=== PATIENT | male | born 1990 | race American Indian/Alaskan Native ===

== ENCOUNTER 2020-05-29 09:21 | Emergency (ER) | payer SELFPAY ==
--- NOTE | 2020-05-29 10:07 | Emergency Department Report ---
ED Abdominal Pain HPI - General Chief Complaint: Abdominal Pain Stated Complaint: VOMITTING/DIAREHA Time Seen by Provider: 05/29/20 09:53 Source: patient Mode of arrival: Ambulatory Limitations: No Limitations - History of Present Illness Initial Comments: 30-year-old -[place] male presents to the emergency room complaining of left lower abdominal cramping with nausea vomiting diarrhea. Patient has no past medical history. Patient states that he ate a sandwich containing mayonnaise that had been sitting his hot car for a few days. Patient has no past medical history. Patient reports that he had taken Imodium which had slowed down the diarrhea but is still having nausea and vomiting. Patient states he feels weak. He denies any hematochezia, hematemesis, chest pain, shortness of breath, penile discharge. or testicular pain. Covid test negative on 05/27/2020. MD Complaint: abdominal pain Onset/Timin -: week(s) Location: LLQ Radiation: none Severity scale (0 -10): 7 Quality: cramping, sharp Consistency: intermittent Improves With: nothing Worsens With: nothing Context: possible food poisoning Associated Symptoms: nausea, vomiting, diarrhea, anorexia. denies: constipation, dysuria, hematemesis, hematochezia, melena, hematuria - Related Data Previous Rx's Medication Instructions Recorded Last Taken Type Dicyclomine [Bentyl] 10 mg PO QID PRN #12 capsule 05/29/20 Unknown Rx Ondansetron [Zofran Odt] 4 mg PO Q8HR PRN #12 tab.rapdis 05/29/20 Unknown Rx Allergies Allergy/AdvReac Type Severity Reaction Status Date / Time No Known Allergies Allergy Unverified 05/29/20 09:25 ED Review of Systems ROS: Stated complaint: VOMITTING/DIAREHA Other details as noted in HPI Comment: All other systems reviewed and negative ED Past Medical Hx - Past Medical History Previous Medical History?: No - Surgical History Past Surgical History?: No - Social History Smoking Status: Current Every Day Smoker Substance Use Type: None - Medications Home Medications: Home Medications Medication Instructions Recorded Confirmed Last Taken Type Dicyclomine [Bentyl] 10 mg PO QID PRN #12 capsule 05/29/20 Unknown Rx Ondansetron [Zofran Odt] 4 mg PO Q8HR PRN #12 tab.rapdis 05/29/20 Unknown Rx ED Physical Exam - General Limitations: No Limitations General appearance: alert, in no apparent distress - Head Head exam: Present: atraumatic, normocephalic - Eye Eye exam: Present: normal appearance - ENT ENT exam: Present: mucous membranes moist - Neck Neck exam: Present: normal inspection, full ROM - Respiratory Respiratory exam: Present: normal lung sounds bilaterally. Absent: respiratory distress, chest wall tenderness, accessory muscle use - Cardiovascular Cardiovascular Exam: Present: regular rate, normal rhythm. Absent: systolic murmur, diastolic murmur, rubs, gallop - GI/Abdominal GI/Abdominal exam: Present: soft, tenderness (Left lower quadrant), normal bowel sounds. Absent: distended - Extremities Exam Extremities exam: Present: normal inspection, full ROM - Back Exam Back exam: Present: normal inspection, full ROM - Neurological Exam Neurological exam: Present: alert, oriented X3 - Psychiatric Psychiatric exam: Present: normal affect, normal mood - Skin Skin exam: Present: warm, dry, intact, normal color. Absent: rash ED Course Vital Signs 05/29/20 09:27 Temperature 98.5 F Pulse Rate 72 Respiratory 18 Rate Blood Pressure 137/80 O2 Sat by Pulse 100 Oximetry ED Medical Decision Making - Lab Data Result diagrams: 05/29/20 10:27 05/29/20 10:25 - Radiology Data Radiology results: report reviewed - Medical Decision Making 30-year-old -[place] male presents to the emergency room complaining of left lower abdominal cramping with nausea vomiting diarrhea. Patient has no past medical history. Patient states that he ate a sandwich containing mayonnaise that had been sitting his hot car for a few days. Patient has no past medical history. Patient reports that he had taken Imodium which had slowed down the diarrhea but is still having nausea and vomiting. Patient states he feels weak. He denies any hematochezia, hematemesis, chest pain, shortness of breath, penile discharge. or testicular pain. Covid test negative on 05/27/2020. CBC, CMP, lipase and CT abdomen pelvis with contrast as patient has left lower quadrant tenderness. The patient is resting comfortably and feels better, is alert and in no distress. The repeat examination is unremarkable and benign; in particular, there is no discomfort at the McBurney's point and there is no pulsating mass. The history, exam and diagnostic testing, and current condition do not suggest an acute appendicitis, bowel obstruction, or acute cholecystitis, bowel perforation, major gastrointestinal bleeding, severe diverticulitis, abdominal aorta, mesenteric ischemia, volvulus, sepsis, or other significant pathology to warrant further testing, continued ED treatment, admission, or surgical evaluation at this point. The vital signs have been stable. The patient does not have uncomfortable pain, irretractable vomiting, or other significant symptoms. The patient's condition is stable and appropriate for discharge from the emergency room. The patient will pursue further outpatient evaluation with the primary care physician or other designated or consulting physician as indicated in the discharge instructions. Critical care attestation.: If time is entered above; I have spent that time in minutes in the direct care of this critically ill patient, excluding procedure time. ED Disposition Clinical Impression: Nausea vomiting and diarrhea Disposition: - TO HOME OR SELFCARE Is pt being admited?: No Does the pt Need Aspirin: No Condition: Stable Instructions: Nausea and Vomiting, Adult, [id number], Diarrhea, Adult, [id number] Additional Instructions: Labs are stable. Vital signs are stable. CT scan shows no acute abnormality. Prescription for Zofran for nausea and vomiting. Bentyl for abdominal cramping. Follow-up with her primary care provider. Prescriptions: Dicyclomine [Bentyl] 10 mg PO QID PRN #12 capsule PRN Reason: Pain, Moderate (4-6) Ondansetron [Zofran Odt] 4 mg PO Q8HR PRN #12 tab.rapdis PRN Reason: Nausea And Vomiting Referrals: PRIMARY CARE, [Primary Care Provider] - 3-5 Days Forms: AMA Form, Work/School Release Form(ED)
[2020-05-29] MEDS ORDERED: ONDANSETRON 4 MG/2 ML INJ IV ONE (10:08)
[2020-05-29] MEDS ORDERED: SODIUM CHLORIDE 0.9% 1000 ML 1,000 ML IV ONE (10:08)
[2020-05-29 10:55] LABS: Basophils # (Auto) 0.1 K/mm3 (0.0-0.1); Eosinophils # (Auto) 0.4 K/mm3 (0.0-0.4); Eosinophils % (Auto) 6.8 % (0.0-4.3); Hematocrit 40.4 % (35.5-45.6); Hemoglobin 14.3 gm/dl (11.8-15.2); Lymphocytes # (Auto) 2.2 K/mm3 (1.2-5.4); Lymphocytes % (Auto) 38.7 % (13.4-35.0); Mean Corpuscular HGB Conc 35 % (32-34); Mean Corpuscular Volume 82 fl (84-94); Monocytes # (Auto) 0.4 K/mm3 (0.0-0.8); Monocytes % (Auto) 6.3 % (0.0-7.3); Platelet Count 310 K/mm3 (140-440); Red Blood Count 4.96 M/mm3 (3.65-5.03); Red Cell Distribution Width 13.7 % (13.2-15.2)
[2020-05-29 10:57] LABS: Alanine Aminotransferase 33 units/L (7-56); Albumin 4.2 g/dL (3.9-5); BUN/Creatinine Ratio 26; Blood Urea Nitrogen 21 mg/dL (9-20); Calcium 9.3 mg/dL (8.4-10.2); Hemolysis Index 6
--- NOTE | 2020-05-29 13:14 | Cat Scan Report ---
CT OF THE ABDOMEN AND PELVIS WITH INTRAVENOUS CONTRAST INDICATION / CLINICAL INFORMATION: Left lower quadrant pain and diarrhea. TECHNIQUE: The patient received 100 cc Omnipaque [address] scans at this location are performed using CT dose reduction for ALARA by means of automated exposure control. COMPARISON: None available. FINDINGS: ABDOMEN: The liver, spleen, gallbladder, bile ducts, pancreas, adrenal glands, kidneys and bowel demo nstrate no significant abnormality. No adenopathy is seen. The lung bases are clear. PELVIS: The distal ureters, urinary bladder, prostate gland and seminal vesicles are normal. A normal appendix is present and there is no evidence of diverticulitis. No abnormal mass or fluid collection is seen. I do not identify a hernia. No osseous abnormality is seen. IMPRESSION: No acute abnormality is identified. Signer Name: Carlos Renteria MD Signed: 05/29/2020 1:04 PM Workstation Name: [id number]
[2020-05-29 13:31] VITALS: BP 128/70
== END 2020-05-29 13:31 | disposition home or self-care (01) ==
LOC: ED 09:21
DX: R11.2 Nausea with vomiting, unspecified (principal); R19.7 Diarrhea, unspecified; F17.200 Nicotine dependence, unspecified, uncomplicated; Z79.899 Other long term (current) drug therapy
CPT/HCPCS: 36415; 74177; 80053; 83690; 85025; 96361; 96374; 99284; J2405; J7030; Q9967